=== PATIENT | female | born 1995 | race Hispanic/Latino ===

== ENCOUNTER 2017-11-22 21:15 | Emergency (ER) | payer SELFPAY | END 2017-11-22 22:59 | disposition home or self-care (01) | LOC: ERS 21:15 | DX: H66.91 Otitis media, unspecified, right ear (principal) | CPT/HCPCS: 99282 ==

== ENCOUNTER 2018-04-13 18:21 | Emergency (ER) | payer SELFPAY ==
[2018-04-13] MEDS ORDERED: Adacel (T-DAP) 0.5 ML VIAL ONE (19:36)
[2018-04-13] MEDS ORDERED: Lidocaine 1% (PF) 30 ML VIAL ONE (19:49)
== END 2018-04-13 20:31 | disposition home or self-care (01) ==
LOC: ERS 18:21
DX: S51.811A Laceration without foreign body of right forearm, initial encounter (principal); Z23 Encounter for immunization; W25.XXXA Contact with sharp glass, initial encounter; Y92.009 Unspecified place in unspecified non-institutional (private) residence as the place of occurrence of the external cause
CPT/HCPCS: 12002; 90471; 90715; J2001

== ENCOUNTER 2021-04-21 03:20 | Inpatient (IN) | payer SELFPAY ==
[2021-04-21 04:01] LABS: Bilirubin Negative (Negative); Blood, Urine 2+ (Negative); Clarity Clear (Clear); Glucose, Urine (Dipstick) Normal (Negative); Ketone, Urine Negative (Negative); Leukocyte 250 Leu/uL (Negative); Nitrite Negative (Negative); Protein, Urine (Dipstick) Negative (Neg-Trace); Specific Gravity, Urine 1.019 (1.002-1.036); Squamous Epithelial 0-3 HPF (0-3); Urobilinogen Normal mg/dL (Less than 2); pH, Urine 6.5 (5.0-9.0)
[2021-04-21 04:04] LABS: #Basophils 0.1 thou/uL (0.0-0.2); #Eosinphils 0.7 thou/uL (0.0-0.7); #Lymphocytes 2.7 thou/uL (1.20-3.40); #Monocytes 1.1 thou/uL (0.11-0.59); #Neutrophils 9.5 thou/uL (1.40-6.50); %Basophils 0.5 % (0.0-1.0); %Lymphocytes 19.3 % (21.0-51.0); %Monocytes 7.7 % (0.0-10.0); %Neutrophils 67.5 % (42.0-75.0); Hemoglobin 11.8 g/dL (12.0-16.0); Mean Corpuscular HGB CONC 34.4 g/dL (32.0-36.0); Mean Corpuscular Hemoglobin 29.7 pg (27.0-31.0); Mean Corpuscular Volume 86.3 fL (78.0-98.0); Mean Platelet Volume 6.6 fL (7.4-10.4); Platelet Count 953 thou/uL (130-400); RBC Distribution Width 12.1 % (11.5-14.5); Red Blood Cell (RBC) Count 3.96 mill/uL (4.20-5.40); White Blood Cell (WBC) Count 14.1 thou/uL (4.8-10.8)
[2021-04-21 04:24] LABS: ALT (SGPT) 64 U/L (8-55); AST (SGOT) 73 U/L (5-34); Albumin 3.7 g/dL (3.5-5.0); Alkaline Phosphatase 99 U/L (40-110); Anion Gap 14 mmol/L (10-20); BUN (Urea Nitrogen) 6 mg/dL (7.0-18.7); Bilirubin, Total 0.2 mg/dL (0.2-1.2); Calc. Creatinine Clearance 0 mL/min (70-130); Calcium 9.2 mg/dL (7.8-10.44); Carbon Dioxide 25 mmol/L (22-29); Chloride 102 mmol/L (98-107); Globulin 4.9 g/dL (2.4-3.5); Glucose 123 mg/dL (70-105); Lipase 32 U/L (8-78); Potassium 3.7 mmol/L (3.5-5.1); Protein, Total 8.6 g/dL (6.0-8.3); Sodium 137 mmol/L (136-145)
[2021-04-21 04:38] LABS: Bacteria/HPF None Seen HPF (None Seen)
[2021-04-21 04:50] LABS: BHCG - Serum Negative (NEGATIVE); Pregs Control Background? CLEAR/WHITE (CLR/WHITE); Pregs Control Bar Appear? YES (CONTROL BAR)
[2021-04-21] MEDS ORDERED: Morphine 4 MG/ML VIAL ONE ×2 (05:09→09:47)
[2021-04-21] MEDS ORDERED: Ondansetron PF 4 MG/2 ML Vial ONE (05:09)
[2021-04-21] MEDS ORDERED: Piperacillin/Tazobactam 4.5 GM VIAL ONE (07:43)
[2021-04-21] MEDS ORDERED: Ondansetron PF 4 MG/2 ML Vial IVP PRN (12:45)
[2021-04-21] MEDS ORDERED: Lactated Ringer's 1,000 ML IV SCH (13:00)
[2021-04-21] MEDS: Morphine 4 MG/ML VIAL SLOW IVP PRN ×2 (13:14→17:46)
[2021-04-21] MEDS ORDERED: Piperacillin/Tazobactam 3.375 GM in Sodium Chloride 0.9% 100 ML IVPB SCH ×2 (13:15→23:59)
[2021-04-21] MEDS ORDERED: Iopamidol-370 76% 500 ML 1 ML ONE (13:22)
[2021-04-21 15:00] VITALS: BMI 31.9
[2021-04-21 15:28] LABS: SARS-CoV-2 NAA Rapid Test DETECTED (NotDetected)
[2021-04-21] MEDS ORDERED: Morphine 4 MG/ML VIAL SLOW IVP SCH (18:35)
[2021-04-21] MEDS ORDERED: Dextrose 5% in Water 1,000 ML IV PRN (19:23)
[2021-04-21] MEDS ORDERED: Dextrose 50% Abboject 50 ML SYRINGE SLOW IVP PRN (19:23)
[2021-04-21] MEDS ORDERED: Morphine 2 MG/ML VIAL SLOW IVP PRN (20:00)
[2021-04-21] MEDS ORDERED: Acetaminophen 500 MG TAB PO PRN (20:32)
[2021-04-21] MEDS: Sodium Chloride 0.9% 1,000 ML IV SCH (20:45)
[2021-04-21] MEDS: Piperacillin/Tazobactam 3.375 GM in Sodium Chloride 0.9% 100 ML IVPB SCH (20:45)
[2021-04-21] MEDS: Acetaminophen 500 MG TAB PO PRN (20:46)
[2021-04-21] MEDS: HYDROcodone/Acetaminophen 10/325 mg Tablet PO PRN (20:46)
[2021-04-21] MEDS: Ondansetron PF 4 MG/2 ML Vial IVP PRN (20:47)
[2021-04-22] MEDS: Morphine 4 MG/ML VIAL SLOW IVP PRN ×3 (02:49→08:26)
[2021-04-22] MEDS: HYDROcodone/Acetaminophen 10/325 mg Tablet PO PRN ×4 (02:50→23:33)
[2021-04-22] MEDS: Piperacillin/Tazobactam 3.375 GM in Sodium Chloride 0.9% 100 ML IVPB SCH ×3 (03:02→20:13)
[2021-04-22 05:38] LABS: #Basophils 0.1 thou/uL (0.0-0.2); #Eosinphils 0.7 thou/uL (0.0-0.7); #Lymphocytes 3.1 thou/uL (1.20-3.40); #Monocytes 1.3 thou/uL (0.11-0.59); %Basophils 0.4 % (0.0-1.0); %Eosinophils 4.9 % (0.0-10.0); %Lymphocytes 22.2 % (21.0-51.0); %Monocytes 8.9 % (0.0-10.0); %Neutrophils 63.6 % (42.0-75.0); Hemoglobin 10.5 g/dL (12.0-16.0); Mean Corpuscular HGB CONC 33.4 g/dL (32.0-36.0); Mean Corpuscular Hemoglobin 28.8 pg (27.0-31.0); Mean Corpuscular Volume 86.3 fL (78.0-98.0); Mean Platelet Volume 6.4 fL (7.4-10.4); Platelet Count 863 thou/uL (130-400); RBC Distribution Width 12.1 % (11.5-14.5); Red Blood Cell (RBC) Count 3.63 mill/uL (4.20-5.40); White Blood Cell (WBC) Count 14.1 thou/uL (4.8-10.8)
[2021-04-22] MEDS ORDERED: Milk Of Magnesia 30 ML UDCUP PO SCH (08:10)
[2021-04-22] MEDS: Enoxaparin Sodium 40 MG/0.4 ML SYRINGE SC SCH (08:25)
[2021-04-22] MEDS: Ondansetron PF 4 MG/2 ML Vial IVP PRN ×2 (08:34→17:50)
[2021-04-22] MEDS: Morphine 2 MG/ML VIAL SLOW IVP PRN ×2 (15:16→21:22)
[2021-04-22] MEDS: Acetaminophen 500 MG TAB PO PRN (15:16)
[2021-04-22] MEDS: Sodium Chloride 0.9% 1,000 ML IV SCH (15:16)
[2021-04-23] MEDS: Piperacillin/Tazobactam 3.375 GM in Sodium Chloride 0.9% 100 ML IVPB SCH ×3 (03:04→20:10)
[2021-04-23] MEDS: Sodium Chloride 0.9% 1,000 ML IV SCH ×2 (03:05→10:57)
[2021-04-23] MEDS: Morphine 2 MG/ML VIAL SLOW IVP PRN ×2 (03:06→20:54)
[2021-04-23] MEDS: Enoxaparin Sodium 40 MG/0.4 ML SYRINGE SC SCH (10:30)
[2021-04-23] MEDS: Polyethylene Glycol 3350 17 GM Packet PO SCH (10:40)
[2021-04-23] MEDS: Morphine 4 MG/ML VIAL SLOW IVP PRN ×2 (13:01→17:59)
[2021-04-23] MEDS: HYDROcodone/Acetaminophen 10/325 mg Tablet PO PRN (15:12)
[2021-04-24] MEDS: HYDROcodone/Acetaminophen 10/325 mg Tablet PO PRN ×3 (01:07→20:46)
[2021-04-24] MEDS: Piperacillin/Tazobactam 3.375 GM in Sodium Chloride 0.9% 100 ML IVPB SCH ×3 (03:20→20:45)
[2021-04-24] MEDS: Morphine 4 MG/ML VIAL SLOW IVP PRN ×4 (03:24→18:23)
[2021-04-24] MEDS: Ondansetron PF 4 MG/2 ML Vial IVP PRN ×3 (04:39→23:38)
[2021-04-24] MEDS: Enoxaparin Sodium 40 MG/0.4 ML SYRINGE SC SCH (08:06)
[2021-04-24] MEDS: Polyethylene Glycol 3350 17 GM Packet PO SCH ×2 (08:06→08:23)
[2021-04-24] MEDS: Morphine 2 MG/ML VIAL SLOW IVP PRN (23:37)
[2021-04-25] MEDS: Piperacillin/Tazobactam 3.375 GM in Sodium Chloride 0.9% 100 ML IVPB SCH ×3 (03:37→20:52)
[2021-04-25] MEDS: HYDROcodone/Acetaminophen 10/325 mg Tablet PO PRN ×3 (04:38→21:05)
[2021-04-25 07:46] LABS: #Basophils 0.1 thou/uL (0.0-0.2); #Eosinphils 0.7 thou/uL (0.0-0.7); #Lymphocytes 3.1 thou/uL (1.20-3.40); #Monocytes 1.1 thou/uL (0.11-0.59); #Neutrophils 6.1 thou/uL (1.40-6.50); %Basophils 0.6 % (0.0-1.0); %Eosinophils 6.2 % (0.0-10.0); %Lymphocytes 28.3 % (21.0-51.0); %Monocytes 9.7 % (0.0-10.0); %Neutrophils 55.2 % (42.0-75.0); Hemoglobin 11.3 g/dL (12.0-16.0); Mean Corpuscular HGB CONC 33.9 g/dL (32.0-36.0); Mean Corpuscular Hemoglobin 29.2 pg (27.0-31.0); Mean Corpuscular Volume 86.1 fL (78.0-98.0); Mean Platelet Volume 6.4 fL (7.4-10.4); Platelet Count 906 thou/uL (130-400); RBC Distribution Width 12.1 % (11.5-14.5); Red Blood Cell (RBC) Count 3.88 mill/uL (4.20-5.40)
[2021-04-25] MEDS: Morphine 4 MG/ML VIAL SLOW IVP PRN ×2 (10:04→23:28)
[2021-04-25] MEDS: Sodium Chloride 0.9% 1,000 ML IV SCH ×2 (10:04→23:28)
[2021-04-25] MEDS: Enoxaparin Sodium 40 MG/0.4 ML SYRINGE SC SCH (10:04)
[2021-04-25] MEDS: Polyethylene Glycol 3350 17 GM Packet PO SCH (10:12)
[2021-04-25] MEDS: Ondansetron PF 4 MG/2 ML Vial IVP PRN ×2 (12:58→20:52)
[2021-04-25] MEDS: Morphine 2 MG/ML VIAL SLOW IVP PRN (15:40)
[2021-04-26] MEDS: Piperacillin/Tazobactam 3.375 GM in Sodium Chloride 0.9% 100 ML IVPB SCH ×2 (04:46→12:57)
[2021-04-26] MEDS: Enoxaparin Sodium 40 MG/0.4 ML SYRINGE SC SCH (08:50)
[2021-04-26] MEDS: HYDROcodone/Acetaminophen 10/325 mg Tablet PO PRN (09:22)
[2021-04-26] MEDS: Ondansetron PF 4 MG/2 ML Vial IVP PRN (09:24)
[2021-04-26] MEDS: Polyethylene Glycol 3350 17 GM Packet PO SCH (13:36)
[2021-04-26] MEDS ORDERED: metroNIDAZOLE 500 MG TAB PO SCH (15:00)
[2021-04-26 16:42] VITALS: BP 111/70; TEMP 98.3
[2021-04-26] MEDS ORDERED: Ciprofloxacin 500 MG TAB PO SCH (20:00)
== END 2021-04-26 17:35 | disposition home or self-care (01) | DRG 862 ==
LOC: ERS 03:20 → SURG B 07:25
PROVIDERS: ADMIT Specialist; ATTEND Specialist
PROC: 8E0ZXY6 Isolation (ICD-10-PCS; principal; 2021-04-21)
DX: T81.43XA Infection following a procedure, organ and space surgical site, initial encounter (principal); U07.1 COVID-19; K65.1 Peritoneal abscess; Y83.6 Removal of other organ (partial) (total) as the cause of abnormal reaction of the patient, or of later complication, without mention of misadventure at the time of the procedure; Z79.899 Other long term (current) drug therapy; Z90.49 Acquired absence of other specified parts of digestive tract; Z93.3 Colostomy status; Z87.19 Personal history of other diseases of the digestive system
CPT/HCPCS: 36415; 74177; 80053; 81003; 81015; 83605; 83690; 84703; 85025; 87040; 87070; 87077; 87186; 87205; 96365; 96375; 96376; J1650; J2270; J2405; J2543; J3490; J7050; J7120; Q9967; U0002

== ENCOUNTER 2021-04-30 20:47 | Emergency (ER) | payer SELFPAY | END 2021-04-30 22:45 | disposition home or self-care (01) | LOC: ERS 20:47 | DX: Z48.01 Encounter for change or removal of surgical wound dressing (principal); K92.9 Disease of digestive system, unspecified; K57.92 Diverticulitis of intestine, part unspecified, without perforation or abscess without bleeding | CPT/HCPCS: 99283 ==

== ENCOUNTER 2021-05-10 20:43 | Emergency (ER) | payer SELFPAY ==
[2021-05-10] MEDS ORDERED: Lidocaine 1% PF 5 ML VIAL ONE (21:37)
[2021-05-10] MEDS ORDERED: Morphine 4 MG/ML VIAL ONE (22:32)
== END 2021-05-10 23:06 | disposition home or self-care (01) ==
LOC: ERS 20:43
DX: L02.211 Cutaneous abscess of abdominal wall (principal); K57.92 Diverticulitis of intestine, part unspecified, without perforation or abscess without bleeding
CPT/HCPCS: 10060; 96372; J2270

== ENCOUNTER 2021-07-18 15:22 | Outpatient (CLI) | payer SELFPAY ==
[2021-07-18 16:13] LABS: #Basophils 0.1 10x3/uL (0.0-0.2); #Eosinphils 0.8 10x3/uL (0.0-0.5); #Monocytes 1.1 10x3/uL (0.0-1.1); #Neutrophils 7.7 10x3/uL (1.5-8.4); %Basophils 0.6 % (0.0-2.0); %Eosinophils 6.7 % (0.0-6.0); %Lymphocytes 17.9 % (18.0-47.0); %Monocytes 9.2 % (0.0-10.0); %Neutrophils 65.3 % (40.0-75.0); Hemoglobin 13.9 g/dL (12.0-15.5); Mean Corpuscular HGB CONC 33.1 g/dL (32.0-36.0); Mean Corpuscular Hemoglobin 27.5 pg (27.0-33.0); Mean Corpuscular Volume 83.2 fl (81.6-98.3); Mean Platelet Volume 9.8 fl (7.4-10.4); Platelet Count 385 10x3/uL (150-450); RBC Distribution Width 13.8 % (11.5-14.5); Red Blood Cell (RBC) Count 5.05 10x6/uL (3.90-5.03); White Blood Cell (WBC) Count 11.8 10x3/uL (3.5-10.5)
[2021-07-18 16:27] LABS: BHCG - Serum Negative (NEGATIVE); Pregs Control Background? CLEAR/WHITE (CLR/WHITE); Pregs Control Bar Appear? YES (CONTROL BAR)
[2021-07-18 16:32] LABS: Anion Gap 10 mmol/L (10-20); BUN (Urea Nitrogen) 10 mg/dL (7.0-18.7); Calc. Creatinine Clearance 0 mL/min (70-130); Calcium 8.8 mg/dL (7.8-10.44); Carbon Dioxide 25 mmol/L (22-29); Chloride 107 mmol/L (98-107); Glucose 115 mg/dL (70-105); Potassium 3.8 mmol/L (3.5-5.1); Sodium 138 mmol/L (136-145)
[2021-07-18 20:23] LABS: Hemoglobin A1c 5.5 % (4.0-6.0)
[2021-07-19 15:32] LABS: SARS-CoV-2 PCR by NAA Not Detected (NotDetected)
== END 2021-07-18 15:23 | disposition home or self-care (01) ==
LOC: LABBT 15:22
PROVIDERS: ATTEND Surgery
DX: Z01.812 Encounter for preprocedural laboratory examination (principal); K94.03 Colostomy malfunction; K57.92 Diverticulitis of intestine, part unspecified, without perforation or abscess without bleeding; Z20.822 Contact with and (suspected) exposure to COVID-19
CPT/HCPCS: 80048; 83036; 84703; 85025; U0003; U0005

== ENCOUNTER 2022-03-27 12:27 | Outpatient (CLI) | payer OTHER ==
[2022-03-27 13:41] LABS: #Basophils 0.1 10x3/uL (0.0-0.2); #Eosinphils 0.5 10x3/uL (0.0-0.5); #Monocytes 0.6 10x3/uL (0.0-1.1); #Neutrophils 5.1 10x3/uL (1.5-8.4); %Basophils 0.8 % (0.0-2.0); %Eosinophils 5.6 % (0.0-6.0); %Lymphocytes 28.7 % (18.0-47.0); %Monocytes 6.5 % (0.0-10.0); %Neutrophils 58.3 % (40.0-75.0); Hemoglobin 13.8 g/dL (12.0-15.5); Mean Corpuscular HGB CONC 33.6 g/dL (32.0-36.0); Mean Corpuscular Hemoglobin 27.4 pg (27.0-33.0); Mean Corpuscular Volume 81.5 fl (81.6-98.3); Mean Platelet Volume 10.1 fl (7.4-10.4); Platelet Count 431 10x3/uL (150-450); RBC Distribution Width 13.4 % (11.5-14.5); Red Blood Cell (RBC) Count 5.04 10x6/uL (3.90-5.03); White Blood Cell (WBC) Count 8.7 10x3/uL (3.5-10.5)
[2022-03-27 13:55] LABS: Anion Gap 14 mmol/L (10-20); BUN (Urea Nitrogen) 10 mg/dL (7.0-18.7); Calc. Creatinine Clearance 0 mL/min (70-130); Calcium 9.1 mg/dL (7.8-10.44); Carbon Dioxide 21 mmol/L (22-29); Chloride 107 mmol/L (98-107); Estimated GFR 122; Glucose 134 mg/dL (70-105); Sodium 138 mmol/L (136-145)
[2022-03-27 14:15] LABS: BHCG - Serum Negative (NEGATIVE); Pregs Control Background? CLEAR/WHITE (CLR/WHITE); Pregs Control Bar Appear? YES (CONTROL BAR)
[2022-03-27 19:55] LABS: Hemoglobin A1c 6.3 % (4.0-6.0)
== END 2022-03-27 12:28 | disposition home or self-care (01) ==
LOC: LABBT 12:27
PROVIDERS: ATTEND Surgery
DX: Z01.812 Encounter for preprocedural laboratory examination (principal); K94.03 Colostomy malfunction; Z20.822 Contact with and (suspected) exposure to COVID-19
CPT/HCPCS: 80048; 83036; 84703; 85025; 87811

== ENCOUNTER 2022-03-27 12:30 | Inpatient (IN) | payer OTHER ==
[2022-04-01] MEDS ORDERED: Glycopyrrolate 0.2 MG/ML 5 ML SYRINGE ONE (12:23)
[2022-04-01] MEDS ORDERED: Dexamethasone 20 MG/5 ML VIAL ONE (12:23)
[2022-04-01] MEDS ORDERED: Rocuronium Bromide 10 MG/ML (10ML VIAL) ONE (12:23)
[2022-04-01] MEDS ORDERED: PROPOFOL 200 MG/20 ML VIAL ONE (12:23)
[2022-04-01] MEDS ORDERED: Lidocaine 1% PF 5 ML VIAL ONE (12:23)
[2022-04-01] MEDS ORDERED: Neostigmine Methylsulfate 3 MG/3 ML SYRINGE ONE (12:23)
[2022-04-01] MEDS ORDERED: Ondansetron PF 4 MG/2 ML Vial ONE (12:23)
[2022-04-01] MEDS ORDERED: fentaNYL Citrate/PF 100 MCG/2 ML SYRINGE ONE (13:07)
[2022-04-01] MEDS ORDERED: Sodium Chloride 0.9% 100 ML ONE (13:12)
[2022-04-01] MEDS ORDERED: cefOXitin 2 GM VIAL ONE (13:12)
[2022-04-01] MEDS ORDERED: Midazolam HCl 2 mg/2 ml Vial ONE (13:16)
[2022-04-01] MEDS ORDERED: HYDROmorphone 2 MG/ML VIAL ONE ×2 (14:41→16:03)
[2022-04-01] MEDS ORDERED: Promethazine HCl 25 MG/ML VIAL IVPB PRN (14:52)
[2022-04-01] MEDS ORDERED: HYDROmorphone 2 MG/ML VIAL SLOW IVP PRN (14:52)
[2022-04-01] MEDS ORDERED: Ondansetron HCl/PF 4 MG/2 ML Vial IVP PRN (14:52)
[2022-04-01] MEDS ORDERED: Meperidine HCl/PF 25 MG/ML VIAL SLOW IVP PRN (14:52)
[2022-04-01] MEDS ORDERED: Promethazine HCl 25 MG/ML VIAL IM PRN ×3 (14:52→16:45)
[2022-04-01] MEDS ORDERED: hydrALAZINE 20 MG/ML VIAL SLOW IVP PRN (15:45)
[2022-04-01] MEDS ORDERED: hydrOXYzine 10 MG TAB PO PRN (15:45)
[2022-04-01] MEDS ORDERED: Ondansetron PF 4 MG/2 ML Vial IVP PRN ×2 (15:45→16:45)
[2022-04-01] MEDS ORDERED: Naloxone HCl 0.4 mg/ml Vial IV PRN (16:45)
[2022-04-01] MEDS ORDERED: diphenhydrAMINE 25 MG CAP PO PRN (16:45)
[2022-04-01] MEDS ORDERED: diphenhydrAMINE 50 MG/ML VIAL IM/IV PRN (16:45)
[2022-04-01] MEDS ORDERED: Zolpidem Tartrate 5 MG TAB PO PRN (16:45)
[2022-04-01] MEDS ORDERED: Fentanyl CADD 100 ML IVPB SCH (16:45)
[2022-04-01] MEDS: D5 1/2 NS w/20 mEq KCL 1,000 ML IV SCH (18:30)
[2022-04-01] MEDS: cefOXitin 2 GM in Sodium Chloride 0.9% 100 ML IVPB SCH (20:58)
[2022-04-01] MEDS: Enoxaparin Sodium 40 MG/0.4 ML SYRINGE SC SCH (20:59)
[2022-04-01] MEDS: Famotidine 20 MG TAB PO SCH (21:00)
[2022-04-01] MEDS: Famotidine/PF 20 mg/2ml Vial SLOW IVP SCH (21:00)
[2022-04-01] MEDS: Ketorolac Tromethamine 30 MG/ML VIAL IVP PRN (22:10)
[2022-04-01] MEDS: Acetaminophen 325 MG TAB PO SCH (22:11)
[2022-04-02 01:19] VITALS: BMI 30.5
[2022-04-02] MEDS: D5 1/2 NS w/20 mEq KCL 1,000 ML IV SCH ×4 (02:02→18:29)
[2022-04-02] MEDS: Ketorolac Tromethamine 30 MG/ML VIAL IVP PRN ×3 (04:26→18:49)
[2022-04-02] MEDS: cefOXitin 2 GM in Sodium Chloride 0.9% 100 ML IVPB SCH (04:27)
[2022-04-02 05:38] LABS: #Lymphocytes 1.6 thou/uL (1.20-3.40); #Monocytes 1.5 thou/uL (0.11-0.59); #Neutrophils 14.1 thou/uL (1.40-6.50); %Basophils 0.1 % (0.0-1.0); %Eosinophils 0.1 % (0.0-10.0); %Lymphocytes 9.2 % (21.0-51.0); %Monocytes 8.8 % (0.0-10.0); %Neutrophils 81.8 % (42.0-75.0); Hemoglobin 12.9 g/dL (12.0-16.0); Mean Corpuscular HGB CONC 33.1 g/dL (32.0-36.0); Mean Corpuscular Hemoglobin 28.4 pg (27.0-31.0); Mean Corpuscular Volume 85.8 fL (78.0-98.0); Mean Platelet Volume 7.8 fL (7.4-10.4); Platelet Count 356 thou/uL (130-400); RBC Distribution Width 12.8 % (11.5-14.5); Red Blood Cell (RBC) Count 4.52 mill/uL (4.20-5.40); White Blood Cell (WBC) Count 17.3 thou/uL (4.8-10.8)
[2022-04-02 06:01] LABS: Anion Gap 14 mmol/L (10-20); BUN (Urea Nitrogen) 7 mg/dL (7.0-18.7); Calc. Creatinine Clearance 141 mL/min (70-130); Calcium 8.6 mg/dL (7.8-10.44); Carbon Dioxide 22 mmol/L (22-29); Estimated GFR 101; Glucose 156 mg/dL (70-105)
[2022-04-02] MEDS: Acetaminophen 325 MG TAB PO SCH ×3 (06:05→21:13)
[2022-04-02 06:21] LABS: Chloride 103 mmol/L (98-107); Sodium 135 mmol/L (136-145)
[2022-04-02] MEDS: Famotidine/PF 20 mg/2ml Vial SLOW IVP SCH ×2 (09:11→21:14)
[2022-04-02] MEDS: Escitalopram Oxalate 10 mg Tablet PO SCH (09:12)
[2022-04-02] MEDS: Famotidine 20 MG TAB PO SCH ×2 (09:12→21:13)
[2022-04-02] MEDS: Enoxaparin Sodium 40 MG/0.4 ML SYRINGE SC SCH (21:13)
[2022-04-03] MEDS: Ketorolac Tromethamine 30 MG/ML VIAL IVP PRN (01:15)
[2022-04-03] MEDS: D5 1/2 NS w/20 mEq KCL 1,000 ML IV SCH (01:19)
[2022-04-03] MEDS: Acetaminophen 325 MG TAB PO SCH ×3 (05:35→21:27)
[2022-04-03] MEDS: Famotidine 20 MG TAB PO SCH ×2 (09:26→19:23)
[2022-04-03] MEDS: Escitalopram Oxalate 10 mg Tablet PO SCH (09:26)
[2022-04-03] MEDS: Famotidine/PF 20 mg/2ml Vial SLOW IVP SCH ×2 (09:27→19:19)
[2022-04-03] MEDS ORDERED: HYDROcodone/Acetaminophen 7.5/325 mg Tablet PO PRN (10:10)
[2022-04-03] MEDS ORDERED: Fentanyl 100 MCG/2 ML VIAL SLOW IVP PRN ×2 (10:11→12:08)
[2022-04-03] MEDS ORDERED: HYDROcodone/Acetaminophen 10/325 mg Tablet PO PRN (12:11)
[2022-04-03] MEDS ORDERED: traMADol HCl 50 MG TAB PO PRN ×2 (12:12→12:13)
[2022-04-03] MEDS: Ibuprofen 600 MG TAB PO SCH ×3 (12:28→19:23)
[2022-04-03] MEDS: Enoxaparin Sodium 40 MG/0.4 ML SYRINGE SC SCH (19:24)
[2022-04-04] MEDS: Acetaminophen 325 MG TAB PO SCH ×2 (05:26→12:42)
[2022-04-04] MEDS: Escitalopram Oxalate 10 mg Tablet PO SCH (07:45)
[2022-04-04] MEDS: Famotidine 20 MG TAB PO SCH (07:45)
[2022-04-04] MEDS: HYDROcodone/Acetaminophen 10/325 mg Tablet PO PRN ×2 (07:45→12:42)
[2022-04-04] MEDS: Famotidine/PF 20 mg/2ml Vial SLOW IVP SCH (07:51)
[2022-04-04 11:43] VITALS: BP 112/74; TEMP 98.3
[2022-04-04] MEDS: Ibuprofen 600 MG TAB PO SCH (12:42)
== END 2022-04-04 15:13 | disposition home or self-care (01) | DRG 331 ==
LOC: T4-A 04-01 11:12 → SURG A 04-01 11:45
PROVIDERS: ADMIT Surgery; ATTEND Surgery
PROC: 0DBN0ZZ Excision of Sigmoid Colon, Open Approach (ICD-10-PCS; principal; 2022-04-01)
PROC: 0DBP0ZZ Excision of Rectum, Open Approach (ICD-10-PCS; 2022-04-01)
DX: Z43.3 Encounter for attention to colostomy (principal); F32.A Depression, unspecified; Z90.49 Acquired absence of other specified parts of digestive tract; Z79.899 Other long term (current) drug therapy; Z83.3 Family history of diabetes mellitus; Z80.9 Family history of malignant neoplasm, unspecified; Z87.19 Personal history of other diseases of the digestive system; Z98.890 Other specified postprocedural states; Z20.822 Contact with and (suspected) exposure to COVID-19; K66.0 Peritoneal adhesions (postprocedural) (postinfection); E66.9 Obesity, unspecified; Z68.30 Body mass index [BMI] 30.0-30.9, adult
CPT/HCPCS: 36415; 36416; 80048; 85025; J0694; J1100; J1170; J1650; J1885; J2250; J2405; J2704; J3010; J3480; J3490

== ENCOUNTER 2022-10-06 10:47 | Emergency (ER) | payer MEDICAID, OTHER, SELFPAY ==
[2022-10-06] MEDS ORDERED: Iopamidol-370 76% 500 ML 1 ML ONE (11:11)
[2022-10-06 11:30] LABS: #Eosinphils 0.3 thou/uL (0.0-0.7); #Lymphocytes 2.4 thou/uL (1.20-3.40); #Monocytes 0.6 thou/uL (0.11-0.59); #Neutrophils 5.1 thou/uL (1.40-6.50); %Basophils 0.3 % (0.0-1.0); %Eosinophils 4.1 % (0.0-10.0); %Lymphocytes 28.1 % (21.0-51.0); %Neutrophils 60.5 % (42.0-75.0); Hemoglobin 14.7 g/dL (12.0-16.0); Mean Corpuscular HGB CONC 34.3 g/dL (32.0-36.0); Mean Corpuscular Hemoglobin 28.6 pg (27.0-31.0); Mean Corpuscular Volume 83.4 fl (78.0-98.0); Platelet Count 344 10x3/uL (130-400); Red Blood Cell (RBC) Count 5.12 mill/uL (4.20-5.40); White Blood Cell (WBC) Count 8.5 10x3/uL (4.8-10.8)
[2022-10-06 11:57] LABS: ALT (SGPT) 234 U/L (8-55); AST (SGOT) 199 U/L (5-34); Albumin 4.1 g/dL (3.5-5.0); Alkaline Phosphatase 124 U/L (40-110); Anion Gap 12 mmol/L (10-20); BUN (Urea Nitrogen) 9 mg/dL (7.0-18.7); Bilirubin, Total 0.5 mg/dL (0.2-1.2); Calc. Creatinine Clearance 0 mL/min (70-130); Calcium 9.5 mg/dL (7.8-10.44); Carbon Dioxide 23 mmol/L (22-29); Chloride 101 mmol/L (98-107); Estimated GFR 103; Globulin 3.4 g/dL (2.4-3.5); Glucose 328 mg/dL (70-105); Lipase 29 U/L (8-78); Potassium 4.2 mmol/L (3.5-5.1); Protein, Total 7.5 g/dL (6.0-8.3); Sodium 132 mmol/L (136-145)
[2022-10-06 13:21] LABS: Bilirubin Negative (Negative); Blood, Urine Negative (Negative); Clarity Clear (Clear); Glucose, Urine (Dipstick) Greater than 1000 mg/dL (Negative); Ketone, Urine Trace mg/dL (Negative); Leukocyte Negative Leu/uL (Negative); Nitrite Negative (Negative); Protein, Urine (Dipstick) Negative (Neg-Trace); Specific Gravity, Urine 1.034 (1.002-1.036); Urobilinogen Normal mg/dL (Less than 2)
[2022-10-06] MEDS ORDERED: Morphine 4 MG/ML VIAL ONE (13:27)
[2022-10-06] MEDS ORDERED: Ondansetron PF 4 MG/2 ML Vial ONE (13:27)
[2022-10-06 13:33] LABS: BHCG - Serum Negative (NEGATIVE); Pregs Control Background? CLEAR/WHITE (CLR/WHITE); Pregs Control Bar Appear? YES (CONTROL BAR)
[2022-10-06] MEDS ORDERED: Ketorolac Tromethamine 30 MG/ML VIAL ONE (16:20)
[2022-10-06] MEDS ORDERED: Lidocaine Viscous Sol 2% 15 ml UD Cup ONE (16:21)
[2022-10-06] MEDS ORDERED: Mag-Al 1200 mg/1200 mg/30 ML UDCUP ONE (16:21)
== END 2022-10-06 17:40 | disposition home or self-care (01) ==
LOC: ERS 10:47
DX: R10.812 Left upper quadrant abdominal tenderness (principal); E11.65 Type 2 diabetes mellitus with hyperglycemia
CPT/HCPCS: 36415; 36416; 71045; 74177; 80053; 81003; 83690; 84484; 84703; 85025; 87086; 96361; 96374; 96375; J1885; J2270; J2405; Q9967

== ENCOUNTER 2023-04-19 19:40 | Emergency (ER) | payer MEDICAID, SELFPAY ==
[2023-04-19] MEDS ORDERED: Acetaminophen 500 MG TAB ONE ×3 (20:27→20:31)
[2023-04-19 20:48] LABS: Bacteria/HPF None Seen HPF (None Seen); Bilirubin Negative (Negative); Blood, Urine Negative (Negative); CAUTI Indications for Culture Pelvic or flank pain; Clarity Clear (Clear); Glucose, Urine (Dipstick) Greater than 1000 mg/dL (Negative); Ketone, Urine 40 mg/dL (Negative); Leukocyte Negative Leu/uL (Negative); Mucous/LPF Rare LPF (<2+); Nitrite Negative (Negative); Protein, Urine (Dipstick) Negative (Neg-Trace); RBC/HPF 0-3 HPF (0-3); Specific Gravity, Urine 1.029 (1.002-1.036); Urobilinogen Normal mg/dL (Less than 2); WBC/HPF 0-3 HPF (0-3)
[2023-04-19 21:01] LABS: Urine Culture Reflex No No
[2023-04-19 22:08] LABS: #Basophils 0.1 thou/uL (0.0-0.2); #Eosinphils 0.1 thou/uL (0.0-0.7); #Neutrophils 8.8 thou/uL (1.40-6.50); %Basophils 0.4 % (0.0-1.0); %Eosinophils 1.1 % (0.0-10.0); %Lymphocytes 20.2 % (21.0-51.0); %Monocytes 7.8 % (0.0-10.0); %Neutrophils 70.3 % (42.0-75.0); Hematocrit 38.4 % (36.0-47.0); Hemoglobin 13.4 g/dL (12.0-16.0); Mean Corpuscular HGB CONC 34.9 g/dL (32.0-36.0); Mean Corpuscular Hemoglobin 29.2 pg (27.0-31.0); Mean Corpuscular Volume 83.7 fl (78.0-98.0); Mean Platelet Volume 9.7 fL (7.4-10.4); Platelet Count 343 10x3/uL (130-400); RBC Distribution Width 12.2 % (11.5-14.5); Red Blood Cell (RBC) Count 4.59 mill/uL (4.20-5.40); White Blood Cell (WBC) Count 12.5 10x3/uL (4.8-10.8)
[2023-04-19 22:33] LABS: ALT (SGPT) 31 U/L (8-55); AST (SGOT) 26 U/L (5-34); Albumin 3.7 g/dL (3.5-5.0); Alkaline Phosphatase 68 U/L (40-110); Anion Gap 10 mmol/L (10-20); BUN (Urea Nitrogen) 10 mg/dL (7.0-18.7); Bilirubin, Total 0.2 mg/dL (0.2-1.2); Calc. Creatinine Clearance 0 mL/min (70-130); Calcium 9.4 mg/dL (7.8-10.44); Carbon Dioxide 21 mmol/L (22-29); Chloride 104 mmol/L (98-107); Estimated GFR 122; Globulin 3.2 g/dL (2.4-3.5); Glucose 201 mg/dL (70-105); Magnesium 1.8 mg/dL (1.6-2.6); Potassium 3.4 mmol/L (3.5-5.1); Protein, Total 6.9 g/dL (6.0-8.3); Sodium 132 mmol/L (136-145)
== END 2023-04-19 23:09 | disposition home or self-care (01) ==
LOC: ERS 19:40
DX: O99.810 Abnormal glucose complicating pregnancy (principal); Z3A.10 10 weeks gestation of pregnancy
CPT/HCPCS: 36415; 36416; 80053; 81001; 82010; 83735; 85025; 99284

== ENCOUNTER 2023-08-05 19:10 | Emergency (ER) | payer OTHER ==
[2023-08-05 19:37] LABS: Bilirubin Negative (Negative); Blood, Urine Negative (Negative); CAUTI Indications for Culture Pregnancy; Clarity Turbid (Clear); Glucose, Urine (Dipstick) 200 mg/dL (Negative); Ketone, Urine Trace mg/dL (Negative); Leukocyte 250 Leu/uL (Negative); Mucous/LPF Rare LPF (<2+); Nitrite Negative (Negative); Protein, Urine (Dipstick) 20 mg/dL (Neg-Trace); RBC/HPF 0-3 HPF (0-3); Specific Gravity, Urine 1.027 (1.002-1.036); Urobilinogen Normal mg/dL (Less than 2); pH, Urine 5.5 (5.0-9.0)
[2023-08-05 19:38] LABS: Bacteria/HPF 1+ HPF (None Seen); Unclassified Crystals 2+ HPF (None Seen)
[2023-08-05 19:39] LABS: Urine Culture Reflex Yes Yes
[2023-08-05] MEDS ORDERED: Acetaminophen 500 MG TAB ONE (19:49)
[2023-08-05 19:52] LABS: #Eosinphils 0.2 thou/uL (0.0-0.7); #Monocytes 0.9 thou/uL (0.11-0.59); #Neutrophils 8.2 thou/uL (1.40-6.50); %Basophils 0.3 % (0.0-1.0); %Eosinophils 1.3 % (0.0-10.0); %Lymphocytes 17.1 % (21.0-51.0); %Monocytes 8.3 % (0.0-10.0); %Neutrophils 72.6 % (42.0-75.0); Hematocrit 36.4 % (36.0-47.0); Hemoglobin 12.7 g/dL (12.0-16.0); Mean Corpuscular HGB CONC 34.9 g/dL (32.0-36.0); Mean Corpuscular Volume 86.1 fl (78.0-98.0); Mean Platelet Volume 10.1 fL (7.4-10.4); Platelet Count 337 10x3/uL (130-400); Red Blood Cell (RBC) Count 4.23 mill/uL (4.20-5.40); White Blood Cell (WBC) Count 11.3 10x3/uL (4.8-10.8)
[2023-08-05 19:57] LABS: BHCG - Serum POSITIVE (NEGATIVE); Pregs Control Background? CLEAR/WHITE (CLR/WHITE); Pregs Control Bar Appear? YES (CONTROL BAR)
[2023-08-05 20:14] LABS: ALT (SGPT) 15 U/L (8-55); AST (SGOT) 17 U/L (5-34); Albumin 3.7 g/dL (3.5-5.0); Alkaline Phosphatase 71 U/L (40-110); Anion Gap 13 mmol/L (10-20); BUN (Urea Nitrogen) 7 mg/dL (7.0-18.7); Bilirubin, Total 0.2 mg/dL (0.2-1.2); Calc. Creatinine Clearance 0 mL/min (70-130); Carbon Dioxide 21 mmol/L (22-29); Chloride 102 mmol/L (98-107); Estimated GFR 126; Globulin 3.7 g/dL (2.4-3.5); Glucose 130 mg/dL (70-105); Potassium 3.6 mmol/L (3.5-5.1); Protein, Total 7.4 g/dL (6.0-8.3); Sodium 132 mmol/L (136-145)
[2023-08-05 20:40] LABS: Bilirubin Negative (Negative); Blood, Urine Negative (Negative); CAUTI Indications for Culture Pregnancy; Clarity Clear (Clear); Glucose, Urine (Dipstick) Normal (Negative); Ketone, Urine Negative (Negative); Leukocyte 75 Leu/uL (Negative); Nitrite Negative (Negative); Protein, Urine (Dipstick) Negative (Neg-Trace); RBC/HPF 0-3 HPF (0-3); Specific Gravity, Urine 1.007 (1.002-1.036); Squamous Epithelial 0-3 HPF (0-3); Urobilinogen Normal mg/dL (Less than 2); WBC/HPF 0-3 HPF (0-3); pH, Urine 5.5 (5.0-9.0)
[2023-08-05 20:51] LABS: Bacteria/HPF Rare-Few HPF (None Seen)
== END 2023-08-05 22:00 | disposition home or self-care (01) ==
LOC: ERS 19:10
DX: O99.891 Other specified diseases and conditions complicating pregnancy (principal); O24.419 Gestational diabetes mellitus in pregnancy, unspecified control; Z3A.26 26 weeks gestation of pregnancy; Z79.84 Long term (current) use of oral hypoglycemic drugs
CPT/HCPCS: 36415; 76856; 80053; 81001; 84703; 85025; 87086; 93976